=== PATIENT | male | born 1970 ===

== ENCOUNTER 2019-02-17 13:09 | Emergency (ER) | payer OTHER ==
[2019-02-17] MEDS ORDERED: Sodium Chloride 0.9% 1,000 ML IV STA (14:40)
--- NOTE | 2019-02-17 14:43 | ED PDOC ---
HPI: Abdomen Time Seen by Provider: 02/17/19 13:36 Chief Complaint (Nursing): Abdominal Pain Chief Complaint (Provider): Generalized abdominal pain History Per: Patient History/Exam Limitations: no limitations Onset/Duration Of Symptoms: Days (2) Outside of [place] travel?: No Current Symptoms Are (Timing): Still Present Pain Scale Rating Of: 8 Location Of Pain/Discomfort: Diffuse Quality Of Discomfort: Unable To Describe Associated Symptoms: Fever (subjective), Chills, Nausea, Diarrhea (4 episodes of diarrhea with white mucus), Loss Of Appetite, Back Pain (middle back pain). denies: Vomiting, Chest Pain, Urinary Symptoms Exacerbating Factors: None Alleviating Factors: Other (Bentyl) Last Bowel Movement: Today Additional Complaint(s): 49 yo male with no medical history presented to ED with complaint of Generalized abdominal pain. Started 2 days ago and located all over the abdomen, reports it is intermittent in nature and rates it as a 8/10, radiates to the middle of the back. Associated with subjective fevers, chills, and malaise. He visited his PMD who prescribed him bentyl and gave him a script for CT scan of the abdomen. Reports that has has been having a liquid diet yesterday because of decreased PO intake. States that he came to the ED as the pain has gotten worse. Denies chest pain, dypsnea, cough, congestion, sick contacts, vomiting, blood in the stool, dysuria, frequency and urgency. PMD: Dr. Hutchinson Family history: Mother from lung cancer; Father from stroke. Surgical history: Right knee meniscal surgery Social: denies smoking history, illicit drug use and denies alcohol use Past Medical History Reviewed: Historical Data, Nursing Documentation, Vital Signs Vital Signs: Last Vital Signs Temp 97 F L 02/17/19 13:14 Pulse 108 H 02/17/19 13:14 Resp 20 02/17/19 13:14 BP 122/77 02/17/19 13:14 Pulse Ox 99 02/17/19 13:14 Primary Care Provider: Jona Kessler - Medical History PMH: No Chronic Diseases - Surgical History Other surgeries: History of right knee meniscal repair - Family History Family History: States: Stroke (father from stroke) Other Family History: Mother from lung cancer (was a heavy smoker) - Social History Current smoker - smoking cessation education provided: No Ex-Smoker (has not smoked in the last 12 months): No Alcohol: None Drugs: Denies - Home Medications Home Medications: Ambulatory Orders Medication Instructions Recorded Dicyclomine [Bentyl] 20 mg PO QID 5 Days #20 tab 02/17/19 Ondansetron ODT [Zofran ODT] 4 mg PO Q8H PRN 5 Days #15 odt 02/17/19 - Allergies Allergies/Adverse Reactions: Allergies Allergy/AdvReac Type Severity Reaction Status Date / Time No Known Allergies Allergy Verified 02/17/19 13:14 Review of Systems Constitutional: Positive for: Fever (subjective), Chills. Negative for: Sweats Cardiovascular: Negative for: Chest Pain, Palpitations Respiratory: Negative for: Cough, Shortness of Breath, SOB with Exertion Gastrointestinal: Positive for: Nausea, Abdominal Pain (generalized), Diarrhea (4 episodes of watery diarrhea with white discharge). Negative for: Vomiting Genitourinary Male: Negative for: Dysuria, Frequency Neurological: Negative for: Weakness Physical Exam - Physical Exam Appears: Positive for: Non-toxic, No Acute Distress Head Exam: Positive for: NORMAL INSPECTION Skin: Positive for: Normal Color, Warm, Dry Eye Exam: Positive for: Normal appearance ENT: Positive for: Other (Moist mucus membranes) Cardiovascular/Chest: Positive for: Regular Rate, Rhythm (S1 and S2 appreciated on exam) Respiratory: Positive for: Normal Breath Sounds. Negative for: Decreased Breath Sounds, Accessory Muscle Use, Crackles, Rales, Rhonchi, Stridor, Wheezing, Respiratory Distress Gastrointestinal/Abdominal: Positive for: Bowel Sounds (hyperactive bowel sounds), Soft. Negative for: Tenderness, Distended, Guarding, Rebound Extremity: Negative for: Tenderness, Pedal Edema, Calf Tenderness, Swelling Neurological/Psych: Positive for: Awake, Alert - Laboratory Results Result Diagrams: 02/17/19 14:53 02/17/19 14:53 - ECG O2 Sat by Pulse Oximetry: 99 - Progress ED Course And Treament: 49 yo male with no medical history presents to the ED with complaint of Generalized abdominal pain. Differential: IBS vs. Diverticulitis vs. gastroenteritis Plan: -- CBC -- VBG -- Lipase -- CMP -- 1L NS bolus -- CT abdomen and pelvis Re-examined 1550 - Patient reports nausea has now resolved. Abdominal pain is 4/10- generalized. - Urine evident for RBC - Pending CT Abd and Pelvis - Patient reports that he now has appetite and is hungry- explained that he is NPO for the time being. 1727 CT scan of abdomen and pelvis: Moderate to severe Stringer-colitis; Simple cyst found on left kidney - Patient stable for discharge and will follow up with PMD in 1 week and with [facility] regarding cyst found on CT and hematuria found on Urinalysis - Scripts for Bentyl and Zofran given to patient upon discharge Disposition - Clinical Impression Clinical Impression: Pancolitis, Renal cyst - Patient ED Disposition Is Patient to be Admitted: No Comment: Follow up with PMD Dr. Hutchinson Doctor Will See Patient In The: Office - Disposition Referrals: Katerine Golden MD [Staff Provider] - Disposition: Routine/Home Disposition Time: 17:26 Condition: IMPROVED Additional Instructions: MICHELLE KAUR, thank you for letting us take care of you today. Your provi haroon was Mily Toledo MD and you were treated for SENT BY PCP; ABD PAIN. The emergency medical care you received today was directed at your acute symptoms. If you were prescribed any medication, please fill it and take as directed. It may take several days for your symptoms to resolve. Return to the Emergency Department if your symptoms worsen, do not improve, or if you have any other problems. Please contact your doctor or call one of the physicians/clinics you have been referred to that are listed on the Patient Visit Information form that is included in your discharge packet. Bring any paperwork you were given at discharge with you along with any medications you are taking to your follow up visit. Our treatment cannot replace ongoing medical care by a primary care provider outside of the emergency department. Very important to follow up with PMD within 1 week and with [facility] regarding cyst found on Left kidney on CT scan of abdomen. Thank you for allowing the [facility] team to be part of your care today. Prescriptions: Dicyclomine [Bentyl] 20 mg PO QID 5 Days #20 tab Ondansetron ODT [Zofran ODT] 4 mg PO Q8H PRN 5 Days #15 odt PRN Reason: Nausea/Vomiting Forms: [employer] (Citizen Of [place])
[2019-02-17 15:26] LABS: BASO # 0.1 K/uL (0.0-0.2); BASO % 0.6 % (0.0-2.0); EOS % 0.1 % (0.0-4.0); HEMOGLOBIN 14.6 g/dL (12.0-18.0); LYMPH # 0.9 K/uL (1.0-4.3); LYMPH % 8.5 % (20.0-40.0); MEAN CELL VOLUME 84.7 fl (80.0-94.0); MEAN CORPUSCULAR HEMOGLOBIN 28.4 pg (27.0-31.0); MEAN CORPUSCULAR HGB CONC 33.5 g/dL (33.0-37.0); MEAN PLATELET VOLUME 9.1 fl (7.2-11.7); MONO # 1.1 K/uL (0.0-0.8); MONO % 9.5 % (0.0-10.0); NEUT # 9.1 K/uL (1.8-7.0); NEUT % 81.3 % (50.0-75.0); NRBC % 0.1 % (0.0-0.0); PLATELET COUNT 173 K/uL (130-400); RBC 5.15 Mil/uL (4.40-5.90); RED CELL DISTRIBUTION WIDTH 14.2 % (11.5-14.5); WHITE BLOOD COUNT 11.1 K/uL (4.8-10.8)
[2019-02-17 15:28] LABS: VENOUS BLOOD GAS BASE EXCESS 3.4 mmol/L (0.0-2.0); VENOUS BLOOD GAS PCO2 44 mmHg (40-60); VENOUS BLOOD GAS PO2 43 mm/Hg (30-55); VENOUS BLOOD PH 7.42 (7.32-7.43)
[2019-02-17 15:34] LABS: URINE BACTERIA RARE (<OCC); URINE BILIRUBIN NEGATIVE (NEGATIVE); URINE BLOOD MODERATE (NEGATIVE); URINE CLARITY SLIGHTY-CLOUDY (Clear); URINE COLOR AMBER (YELLOW); URINE GLUCOSE (UA) NEG (NEGATIVE); URINE LEUKOCYTE ESTERASE NEG Leu/uL (Negative); URINE PROTEIN NEGATIVE (NEGATIVE); URINE UROBILINOGEN 0.2-1.0 mg/dL (0.2-1.0)
[2019-02-17 15:41] LABS: ALB/GLOB RATIO 1.2 (1.0-2.1); ALT/SGPT 27 U/L (21-72); AST/SGOT 21 U/L (17-59); BLOOD UREA NITROGEN 15 mg/dl (9-20); CALCIUM 8.8 mg/dL (8.4-10.2); GFR NON-AFRICAN AMERICAN > 60; LIPASE 95 U/L (23-300)
[2019-02-17] MEDS ORDERED: Iohexol 300 100 ML IJ ONE (16:17)
[2019-02-17] MEDS ORDERED: Sodium Chloride 0.9% 50 ML IV ONE (16:18)
--- NOTE | 2019-02-17 16:59 | CT ---
Date of service: 02/17/2019 PROCEDURE: CT Abdomen and Pelvis with contrast HISTORY: renal colic, r/o stones COMPARISON: None. TECHNIQUE: Intravenous contrast dose: 95 cc Omnipaque 300. Radiation dose: Total exam DLP = 824.53 mGy-cm. This CT exam was performed using one or more of the following dose reduction techniques: Automated exposure control, adjustment of the mA and/or kV according to patient size, and/or use of iterative reconstruction technique. FINDINGS: LOWER THORAX: Unremarkable. LIVER: Unremarkable. No gross lesion or ductal dilatation. GALLBLADDER AND BILE DUCTS: Unremarkable. PANCREAS: Unremarkable. No gross lesion or ductal dilatation. SPLEEN: Unremarkable. ADRENALS: Unremarkable. No mass. KIDNEYS AND URETERS: Unremarkable. No hydronephrosis. No solid mass. Incidental finding(s): Simple cyst medial aspect upper pole left kidney 3.4 x 3.5 cm. VASCULATURE: Unremarkable. No aortic aneurysm. No atherosclerotic calcification or mural plaque present. BOWEL: Moderate-severe pain colitis. APPENDIX: Normal appendix. PERITONEUM: Trace pelvic fluid. No free fluid. No free air. LYMPH NODES: Unremarkable. No enlarged lymph nodes. BLADDER: Unremarkable. REPRODUCTIVE: Unremarkable. BONES: No acute fracture. OTHER FINDINGS: None. IMPRESSION: Moderate-severe hernandez colitis. Additional benign and/or incidental findings described above.
[2019-02-17 18:04] LABS: BANDS 3 % (0-2); BASOPHIL 1 % (0-2); LYMPHOCYTE 11 % (20-50); MONOCYTE 8 % (0-10); NEUTROPHIL 77 % (42-75); TOTAL CELLS COUNTED 100
[2019-02-17 18:05] LABS: HYPOCHROMIC SLIGHT; PLATELET ESTIMATE NORMAL (NORMAL)
[2019-02-17 18:07] VITALS: BP 129/73; PULSE 76; RESP 18; TEMP 98.9; O2SAT 97
== END 2019-02-17 18:15 | disposition home or self-care (01) ==
LOC: H.ER 13:09
DX: N28.1 Cyst of kidney, acquired (principal); K51.00 Ulcerative (chronic) pancolitis without complications; Z79.899 Other long term (current) drug therapy; Z87.891 Personal history of nicotine dependence
CPT/HCPCS: 74177; 80053; 81003; 82803; 83690; 85025; 96361; 96374; 99283; J2405; J7030; Q9967